=== PATIENT | male | born 1995 | race Caucasian/White ===

== ENCOUNTER 2017-05-28 17:45 | Emergency (ER) | payer MEDICAID ==
[2017-05-28] MEDS ORDERED: IBUPROFEN 600 MG TAB PO ONE (18:12)
--- NOTE | 2017-05-28 19:15 | EDPHY ---
H & P Time Seen by Provider: 05/28/17 17:51 HPI/ROS: This patient has a finger laceration with unusual mechanism and that he has a ring structure made of plastic that is in addition half wide with a longitudinally oriented blade in the lumen of the ring apparently for cutting cigars longitudinally. This was in his pocket he for some reason put his finger -right ring finger into the lumen of this and then it got stuck in caused a laceration to his finger. He is now stuck on his finger. He reports mild to moderate pain. No bleeding is extending beyond the device. He is accompanied by his female friend. ROS: Neuro: No numbness or tingling Cardiovascular: No pallor to the finger beyond the ring. 5 point ROS is otherwise negative Past Medical/Surgical History: Otherwise healthy with immunizations up today Smoking Status: Never smoked Physical Exam: Physical Exam Vital signs are normal. General: No acute distress Cardiac: Brisk capillary refill is intact throughout. Pulses are 2+ and symmetric in the affected extremity. Skin: No rash or pallor there is a 1 cm laceration to the palmar aspect of the right ring finger proximal phalanx oriented longitudinally with subcutaneous tissue evident, mild bleeding, no foreign bodies noted after the ring was removed. During the procedure the patient sustained superficial burn to the dorsum of the affected finger with mild blistering in to areas that are 1.5 cm long and 3 or 4 mm wide Extremities: Atraumatic normal except for right ring finger Right ring finger: Patient has a and approximately 2.5 cm wide plastic ring like device with longitudinally mounted blade oriented told the palmar aspect of the finger imbedded in the finger. Patient is neurovascularly intact Neuro: Alert and oriented with no sensorimotor deficits in the affected finger. Constitutional: Initial Vital Signs Heart Rate 76 05/28/17 17:53 Respiratory Rate 18 05/28/17 17:53 Blood Pressure 125/60 H 05/28/17 17:53 O2 Sat (%) 99 05/28/17 17:53 O2 Delivery Mode Room Air Allergies/Adverse Reactions: No Known Allergies Allergy (Verified 06/26/14 17:42) Home Medications: Medication Instructions Recorded NK [No Known Home Meds] 05/28/17 MDM/Departure - MDM Procedures: Digital block: After verbal consent, using a 2% plain lidocaine, 27 gauge needle, chlorhexidine scrub under sterile conditions-3 injections were administered to the base of the affected finger, 8 mL with good effect. Patient tolerated this well. There were no complications. The wound is 1 cm, full-thickness. The wound was copiously irrigated with saline. The wound was explored for foreign bodies and none were found. The wound was prepped and draped in the normal sterile fashion. The edges were reapproximated using 2 running sutures with 4 0 Prolene with good hemostasis and cosmesis. The patient tolerated the procedure well. There were no complications. Medications Given: Discontinued Medications Ibuprofen (Motrin) 600 mg PO EDNOW ONE Stop: 05/28/17 18:13 Last Admin: 05/28/17 18:15 Dose: 600 mg ED Course/Re-evaluation: Procedure: Ring removal After verbal consent I initially considered using a ring cutter but this was not going to work due to the width of the tube/ring-like structure. I opted to use the cast cutter. Made 3 longitudinal cuts 2 on the dorsum 1 on the volar aspect to remove the device. Despite pausing multiple times to allow the device to cool the procedure was complicated by superficial burn to the dorsum of the patient's finger with mild blistering. I went very slowly and a palmar aspect avoiding any burning to that part of the finger. Despite this patient tolerated the procedure well with no other complications. After suture repair of the laceration, bacitracin is applied to the superficial michael into the laceration followed by tube gauze. I counseled patient regarding burn care and wound care. - Depart Disposition: Home, Routine, Self-Care Clinical Impression: Tight ring on finger, Iatrogenic superficial burn to finger Finger laceration Qualifiers: Encounter type: initial encounter Finger: ring finger Damage to nail status: unspecified Foreign body presence: without foreign body Laterality: right Qualified Code(s): S61.214A - Laceration without foreign body of right ring finger without damage to nail, initial encounter Condition: Good Instructions: Superficial Burn (ED), Finger Laceration (ED) Additional Instructions: Diagnoses: 1. Ring trapped on finger 2. Finger laceration 3. Superficial burn Plan: [id number] mg per 6 hours as needed for pain Tylenol in addition if needed Keep the dressing on the finger-clean and dry for 2 days, then removed the dressing and clean the burn and the laceration daily with warm soapy water and apply bacitracin ointment. Return for suture removal in 10-12 days. Return sooner if you develop redness, discharge or other concerns for infection. Referrals: TAHIR BARROW,. [Primary Care Provider] - As per Instructions
[2017-05-28 19:30] VITALS: BP 118/62; PULSE 74; RESP 16; TEMP 97.9; O2SAT 96
== END 2017-05-28 19:23 | disposition home or self-care (01) ==
LOC: CED 17:45
PROC: 0HQFXZZ Repair Right Hand Skin, External Approach (ICD-10-PCS; principal; 2017-05-28)
PROC: 2W2JX4Z Dressing of Right Finger using Bandage (ICD-10-PCS; principal; 2017-05-28)
DX: S61.214A Laceration without foreign body of right ring finger without damage to nail, initial encounter (principal); S60.444A External constriction of right ring finger, initial encounter; T23.221A Burn of second degree of single right finger (nail) except thumb, initial encounter; T31.0 Burns involving less than 10% of body surface; W49.09XA Other specified item causing external constriction, initial encounter; X19.XXXA Contact with other heat and hot substances, initial encounter

== ENCOUNTER 2017-06-01 15:42 | Emergency (ER) | payer MEDICAID ==
[2017-06-01 15:51] VITALS: BP 113/65; PULSE 66; RESP 16; TEMP 98.1; O2SAT 95
[2017-06-01] MEDS ORDERED: CEPHALEXIN 500 MG CAP PO ONE (16:00)
--- NOTE | 2017-06-01 16:00 | EDPHY ---
H & P Time Seen by Provider: 06/01/17 15:54 HPI/ROS: CHIEF COMPLAINT: Concern for infection HISTORY OF PRESENT ILLNESS: This is a 22-year-old male who was seen in the emergency department 5 days ago. At that time the patient had placed a cigar cutter on his ring finger. The cigar cutter consisted of a plastic ring with a small blade. When he placed on his finger it then became stuck on his finger. Came to the emergency department to have it removed. They were unable to pull it off so they used a ring cutter to cut the ring. Unfortunately the ring cutter melted the plastic which then gave him a burn. He now is concerned regarding surrounding redness and discomfort on the area. Patient has had no fever, minimal swelling, no discomfort with range of motion at the finger. REVIEW OF SYSTEMS: As per HPI. PAST MEDICAL HISTORY: Denies. SOCIAL HISTORY: Smoker. GENERAL APPEARANCE: Alert, pleasant, no distress. FOCUSED EXAM OF right hand: Right ring finger has a 1st and second-degree burn on the dorsal aspect of the proximal phalanx. There is 2-3 mm of surrounding erythema along the burn edge. There is faint erythema spreading proximal to the level of the MCP. Full range of motion at the MCP without discomfort. No tenderness to palpation along the extensor tendon sheath. No erythema, swelling , or tenderness on the palmar aspect. Palmar aspect contains a small 4 mm laceration which has been repaired by 2 sutures. Brisk capillary refill. Smoking Status: Never smoked Constitutional: Initial Vital Signs Temperature (C) 36.7 C 06/01/17 15:48 Heart Rate 66 06/01/17 15:48 Respiratory Rate 16 06/01/17 15:48 Blood Pressure 113/65 06/01/17 15:48 O2 Sat (%) 95 06/01/17 15:48 O2 Delivery Mode Room Air Allergies/Adverse Reactions: No Known Allergies Allergy (Verified 06/01/17 15:47) Home Medications: Medication Instructions Recorded Cephalexin [Keflex (RX)] 500 mg PO QID 5 Days 06/01/17 MDM/Departure - MDM ED Course/Re-evaluation: Patient is developing at very early cellulitis versus inflammatory response around the burn site. He was placed on Keflex 500 mg by mouth 4 times a day. Differential Diagnosis: Differential diagnoses for the patient's symptom complex was considered including but not limited to early cellulitis, inflammatory changes, allergic reaction, abscess development, deep space infection. - Depart Disposition: Home, Routine, Self-Care Clinical Impression: Cellulitis Qualifiers: Site of cellulitis: extremity Site of cellulitis of extremity: finger Laterality: right Qualified Code(s): L03.011 - Cellulitis of right finger Condition: Good Instructions: Cellulitis (ED) Additional Instructions: Please begin taking the antibiotics as directed. Keflex 500 mg by mouth 4 times a day. Your 1st dose was given in the emergency department. You should take the 2nd dose before bed tonight. Antibiotics for 5 days. Please continue to use a topical antibiotic ointment such as Neosporin or triple antibiotic cream on the burn site as well. Keep the burn covered if you are going to be outside where it may be dwayne. Please return for suture removal as previously scheduled. Prescriptions: Cephalexin [Keflex (RX)] 500 mg PO QID 5 Days Referrals: TAHIR BARROW,. [Primary Care Provider] - As per Instructions
== END 2017-06-01 16:10 | disposition home or self-care (01) ==
LOC: CED 15:42
DX: L03.011 Cellulitis of right finger (principal); F17.200 Nicotine dependence, unspecified, uncomplicated